=== PATIENT | male | born 1985 | race Caucasian/White ===

== ENCOUNTER 2017-02-13 05:15 | Emergency (ER) | payer BC ==
--- NOTE | 2017-02-13 05:29 | PDOC ---
History of Present Illness - General History Source: Patient Exam Limitations: No Limitations - History of Present Illness Initial Comments: 02/13/17 05:34 The patient is a 31 year old male with no significant past medical history who presents to the ED with left flank pain prior to arrival. Patient reports he went to bed in his usual state of health last night when he woke up around 4am with a sudden onset of left flank pain that radiates down the left lower quadrant. He describes pain as colicky in nature and 10/10, in severity. Patient states never experiencing similar symptoms in the past. The patient denies fever, chills, cough, SOB, chest pain, and palpitations. The patient denies nausea, vomiting, and diarrhea. The patient denies dysuria, hematuria, urgency, and frequency. Allergies: cefaclor Social History: No alcohol, tobacco, or drug use reported. Past Surgical History: None reported PCP: Dr. Martin Alexander <Matilda Ashraf - Last Filed: 02/13/17 06:29> - General History Source: Patient <Emanuel Busch - Last Filed: 02/13/17 22:37> - General Stated Complaint: ABD PAIN Time Seen by Provider: 02/13/17 05:27 Past History <Matilda Ashraf - Last Filed: 02/13/17 06:29> - Psycho/Social/Smoking Cessation Hx Suicidal Ideation: No Smoking History: Never smoked Have you smoked in the past 12 months: No Information on smoking cessation initiated: No Hx Alcohol Use: No Drug/Substance Use Hx: No <Emanuel Busch - Last Filed: 02/13/17 22:37> - Past Medical History Allergies/Adverse Reactions: Allergies Allergy/AdvReac Type Severity Reaction Status Date / Time cefaclor [From [facility]] Allergy Verified 02/13/17 05:27 Home Medications: Ambulatory Orders Oxycodone HCl/Acetaminophen [Percocet 5-325 mg Tablet] 1 tab PO Q6H PRN #10 tablet MDD 4 02/13/17 Tamsulosin HCl [Flomax] 0.4 mg PO DAILY #7 capsule 02/13/17 Review of Systems - Review of Systems Able to Perform ROS?: Yes Comments:: 02/13/17 05:34 CONSTITUTIONAL: Absent: fever, no chills, no fatigue EYES: Absent: visual changes ENT: Absent: ear pain, no sore throat CARDIOVASCULAR: Absent: chest pain, no palpitations RESPIRATORY: Absent: cough, no SOB GI: +left lower quadrant pain Absent: no nausea, no vomiting, no constipation, no diarrhea GENITOURINARY: +left flank pain Absent: dysuria, no frequency, no hematuria MUSKULOSKELETAL: Absent: back pain, no arthralgia, no myalgia SKIN: Absent: rash NEURO: Absent: headache <Matilda Ashraf - Last Filed: 02/13/17 06:29> *Physical Exam - Vital Signs Last Vital Signs Temp Pulse Resp BP Pulse Ox 97.8 F 76 14 153/107 100 02/13/17 05:27 02/13/17 05:27 02/13/17 05:27 02/13/17 05:27 02/13/17 05:27 - Physical Exam Comments: 02/13/17 05:35 GENERAL: Well-appearing, well-nourished. Severe distress. HEENT: Normocephalic, atraumatic. PERRL, EOM intact. CARDIOVASCULAR: Normal S1, S2. Regular rate and rhythm. PULMONARY: Clear to auscultation bilaterally. ABDOMEN: Soft, non-distended, non-tender. MUSCULOSKELETAL Normal range of motion at all joints. Left CVA tenderness. EXTREMITIES: Normal ROM in all four extremities. No gross deformities. SKIN: Warm, dry. No rash NEUROLOGICAL: No focal neurological deficits. <Matilda Ashraf - Last Filed: 02/13/17 06:29> - Vital Signs Last Vital Signs Temp Pulse Resp BP Pulse Ox 97.8 F 76 14 153/107 100 02/13/17 05:27 02/13/17 05:27 02/13/17 05:27 02/13/17 05:27 02/13/17 05:27 <Emanuel Busch - Last Filed: 02/13/17 22:37> ED Treatment Course - LABORATORY CBC & Chemistry Diagram: 02/13/17 05:30 02/13/17 05:30 - RADIOLOGY Radiograph Interpretation: 02/13/17 06:29 EXAM: CT abdomen and pelvis without contrast Reviewed by Imaging merchandise presentation manager: FINDINGS: Lung bases are clear. The visualized cardiac chambers are normal size and configuration. There is mild left hydronephrosis and minimal perinephric inflammation secondary to a 5 mm mid left ureteral stone. No additional stones identified. Normal liver, gallbladder , pancreas, spleen, adrenal glands and kidneys. The stomach and abdominal small and large bowel are normal. There is no aortic aneurysm. There is no significant retroperitoneal lymphadenopathy. The pelvic small and large bowel are normal. The appendix is normal.. The urinary bladder and prostate gland are normal. No pelvic free fluid is identified. There is no significant pelvic lymphadenopathy. Is left-sided hemisacralization of L5 with pseudoarthrosis formation which can be a source of chronic back pain. IMPRESSION: Mild left hydronephrosis and minimal perinephric inflammation secondary to a 5 mm mid left ureteral stone. <Matilda Ashraf - Last Filed: 02/13/17 06:29> - LABORATORY CBC & Chemistry Diagram: 02/13/17 05:30 02/13/17 05:30 <Emanuel Busch - Last Filed: 02/13/17 22:37> Medical Decision Making - Medical Decision Making 02/13/17 06:11 Dr. Busch: The scribe's documentation has been prepared under my direction and personally reviewed by me in its entirery. I confirm that the note above accurately reflects all work, treatment, procedures, and medical decision making performed by me. Pt has Afib on EKG aat controlled rate of 95. Pt feeling better at this time. Pending labs <Emanuel Busch - Last Filed: 02/13/17 22:37> *DC/Admit/Observation/Transfer - Attestations Scribe Attestion: 02/13/17 05:35 Documentation prepared by Matilda Ashraf, acting as veterinary medical officer for Emanuel Busch MD <Matilda Ashraf - Last Filed: 02/13/17 06:29> - Discharge Dispostion Admit: No <Emanuel Busch - Last Filed: 02/13/17 22:37> Diagnosis at time of Disposition: Renal colic - Discharge Dispostion Disposition: HOME Condition at time of disposition: Improved - Prescriptions Prescriptions: Tamsulosin HCl [Flomax] 0.4 mg PO DAILY #7 capsule Oxycodone HCl/Acetaminophen [Percocet 5-325 mg Tablet] 1 tab PO Q6H PRN #10 tablet MDD 4 PRN Reason: Pain - Referrals Referrals: Avel Minor MD [Staff Physician] - Martin Alexander MD [Primary Care Provider] - - Patient Instructions Printed Discharge Instructions: DI for Kidney Stones Additional Instructions: Activity as tolerated. Stay well hydrated. Use urine strainer as instructed. Ibuprofen 600 mg every 8 hours as needed for moderate pain. Percocet as prescribed as needed for severe pain. Percocet can make you lightheaded, so take proper precautions. Take Flomax as prescribed daily to help pass the stone. You should follow up with a urologist as soon as possible regarding today's emergency department visit. Consider calling Dr. Minor for an appointment. Return to the emergency department for any new or concerning symptoms, particularly persistent or worsening pain, fevers or chills, difficulty urinating.
[2017-02-13 05:30] VITALS: TEMP 97.8; BMI 20.3
[2017-02-13] MEDS ORDERED: morphine CARPU-JECT 2 MG/1 ML DISP.SYRIN IVPUSH ONE (05:30)
[2017-02-13] MEDS ORDERED: ONDANSETRON 4 MG/2 ML VIAL IVPUSH STA (05:30)
[2017-02-13] MEDS ORDERED: SODIUM CHLORIDE 1,000 ML IV STA (05:30)
[2017-02-13] MEDS ORDERED: morphine CARPU-JECT 2 MG/1 ML DISP.SYRIN ONE (05:35)
[2017-02-13] MEDS ORDERED: morphine CARPU-JECT 4 MG/1 ML DISP.SYRIN ONE (05:36)
[2017-02-13] MEDS ORDERED: ONDANSETRON 4 MG/2 ML VIAL ONE (05:36)
[2017-02-13 05:41] LABS: BASOPHIL 0.6 % (0-2.0); EOSINOPHIL 1.4 % (0-4.5); MCH 28.5 pg (25.7-33.7); MCHC 33.9 g/dl (32.0-35.9); MEAN CELL VOLUME 84.1 fl (80-96); NEUTROPHILS 58.7 % (42.8-82.8); PLATELET COUNT 239 K/MM3 (134-434); RDW 12.8 % (11.9-15.9); WHITE BLOOD COUNT 7.1 K/mm3 (4.0-10.0)
[2017-02-13 06:03] LABS: ALBUMIN 4.2 g/dl (3.4-5.0); ALK PHOS 71 U/L (45-117); ANION GAP 9 (8-16); BILIRUBIN,TOTAL 0.9 mg/dL (0.2-1.0); CO2 28 mmol/L (21-32); CREATININE 0.9 mg/dL (0.7-1.3); GLUCOSE,RANDOM 114 mg/dL (74-106); SGOT/AST 16 U/L (15-37); SGPT/ALT 28 U/L (12-78); TOT PROT 7.3 g/dl (6.4-8.2)
[2017-02-13] MEDS ORDERED: KETOROLAC TROMETHAMINE 30 MG/1 ML VIAL IVPUSH ONE (06:33)
[2017-02-13] MEDS ORDERED: KETOROLAC TROMETHAMINE 30 MG/1 ML VIAL ONE (06:36)
[2017-02-13 07:41] LABS: URINE APPEARANCE CLEAR; URINE BILIRUBIN NEGATIVE (NEGATIVE); URINE COLOR LTYELLOW; URINE GLUCOSE (UA) NEGATIVE (NEGATIVE); URINE KETONE NEGATIVE (NEGATIVE); URINE LEUK ESTERASE NEGATIVE (NEGATIVE); URINE NITRITE NEGATIVE (NEGATIVE); URINE UROBILINOGEN NEGATIVE E.U./dl (0.2-1.0)
[2017-02-13 07:50] LABS: URINE BLOOD 3+ (NEGATIVE); URINE PROTEIN 1+ (NEGATIVE)
[2017-02-13 07:51] LABS: URINE MUCUS FEW; URINE RBC 836 /hpf (0-3); URINE WBC 13 /hpf (3-5)
--- NOTE | 2017-02-13 09:50 | PDOC ---
*Physical Exam - Vital Signs Last Vital Signs Temp Pulse Resp BP Pulse Ox 97.8 F 76 14 153/107 100 02/13/17 05:27 02/13/17 05:27 02/13/17 05:27 02/13/17 05:27 02/13/17 05:27 - Physical Exam Comments: 02/13/17 09:45 Vital signs normal. Well-appearing, comfortable, pain resolved. Abdomen is benign ED Treatment Course - LABORATORY CBC & Chemistry Diagram: 02/13/17 05:30 02/13/17 05:30 - ADDITIONAL ORDERS Additional order review: Laboratory Results 02/13/17 02/13/17 07:35 05:30 Sodium 141 Potassium 3.9 Chloride 104 Carbon Dioxide 28 Anion Gap 9 BUN 17 Creatinine 0.9 Creat Clearance w eGFR > 60 Random Glucose 114 H Calcium 9.0 Total Bilirubin 0.9 AST 16 ALT 28 Alkaline Phosphatase 71 Total Protein 7.3 Albumin 4.2 Urine Color Ltyellow Urine Appearance Clear Urine pH 6.0 Ur Specific [place] 1.019 Urine Protein 1+ H Urine Glucose (UA) Negative Urine Ketones Negative Urine Blood 3+ H Urine Nitrite Negative Urine Bilirubin Negative Urine Urobilinogen Negative Ur Leukocyte Esterase Negative Urine RBC 836 Urine WBC 13 Ur Epithelial Cells Rare Urine Mucus Few 02/13/17 05:30 RBC 5.25 MCV 84.1 MCHC 33.9 RDW 12.8 MPV 9.0 Neutrophils % 58.7 Lymphocytes % 32.3 Monocytes % 7.0 Eosinophils % 1.4 Basophils % 0.6 - Medications Given in the ED: ED Medications Discontinued Medications Generic Name Dose Route Start Last Admin Trade Name Freq PRN Reason Stop Dose Admin Sodium Chloride 1,000 mls @ 1,000 mls/hr 02/13/17 05:30 02/13/17 05:58 Normal Saline - IV 02/13/17 06:29 1,000 mls/hr ASDIR STA Administration Ketorolac Tromethamine 30 mg 02/13/17 06:33 02/13/17 06:36 Toradol Injection - IVPUSH 02/13/17 06:34 30 mg ONCE ONE Administration Morphine Sulfate 6 mg 02/13/17 05:30 02/13/17 05:43 Morphine Injection - IVPUSH 02/13/17 05:31 6 mg ONCE ONE Administration Ondansetron HCl 4 mg 02/13/17 05:30 02/13/17 05:43 Zofran Injection IVPUSH 02/13/17 05:31 4 mg ONCE STA Administration Medical Decision Making - Medical Decision Making 02/13/17 09:45 Received signout on this healthy 31-year-old male with first resin station of renal colic, diagnosed with left mid ureteral 5 mm stone with mild [place], normal labs. Pain improved after morphine and Toradol. Plan at signout was to check urinalysis and dispo accordingly. Urinalysis with elevated blood but no evidence of infection, pain improved, agrees with discharge plan and urology follow-up. Understands return criteria. *DC/Admit/Observation/Transfer Diagnosis at time of Disposition: Renal colic - Discharge Dispostion Disposition: HOME Condition at time of disposition: Improved - Prescriptions Prescriptions: Tamsulosin HCl [Flomax] 0.4 mg PO DAILY #7 capsule Oxycodone HCl/Acetaminophen [Percocet 5-325 mg Tablet] 1 tab PO Q6H PRN #10 tablet MDD 4 PRN Reason: Pain - Referrals Referrals: Martin Alexander MD [Primary Care Provider] - Avel Minor MD [Staff Physician] - - Patient Instructions Printed Discharge Instructions: DI for Kidney Stones Additional Instructions: Activity as tolerated. Stay well hydrated. Use urine strainer as instructed. Ibuprofen 600 mg every 8 hours as needed for moderate pain. Percocet as prescribed as needed for severe pain. Percocet can make you lightheaded, so take proper precautions. Take Flomax as prescribed daily to help pass the stone. You should follow up with a urologist as soon as possible regarding today's emergency department visit. Consider calling Dr. Minor for an appointment. Return to the emergency department for any new or concerning symptoms, particularly persistent or worsening pain, fevers or chills, difficulty urinating. - Post Discharge Activity
[2017-02-13 10:24] VITALS: BP 118/78; PULSE 80
== END 2017-02-13 10:23 | disposition home or self-care (01) ==
LOC: JER 05:15
PROC: 3E0333Z Introduction of Anti-inflammatory into Peripheral Vein, Percutaneous Approach (ICD-10-PCS; principal; 2017-02-13)
PROC: 3E033NZ Introduction of Analgesics, Hypnotics, Sedatives into Peripheral Vein, Percutaneous Approach (ICD-10-PCS; 2017-02-13)
PROC: 3E033GC Introduction of Other Therapeutic Substance into Peripheral Vein, Percutaneous Approach (ICD-10-PCS; 2017-02-13)
PROC: 3E0337Z Introduction of Electrolytic and Water Balance Substance into Peripheral Vein, Percutaneous Approach (ICD-10-PCS; 2017-02-13)
DX: N23 Unspecified renal colic (principal)
CPT/HCPCS: 36415; 74176; 80053; 81003; 81015; 85025; 87086; 99283-25